=== PATIENT | female | born 1970 | race Caucasian/White ===

== ENCOUNTER → 2019-12-01 | Outpatient (CLI) | payer OTHER ==
--- NOTE | 2019-12-01 11:42 | RAD ---
Examination: ABDOMEN COMPLETE History: Reason: Epigastric ABD pain; Crohns Disease / Spl. Instructions: / History: Comparison/Correlation: None Findings: Complete upper abdominal ultrasound exam was performed. Exam is somewhat limited due to patient body habitus. Slight fatty infiltration of the liver noted. Portal venous flow is normal. Common bile duct is unremarkable. No biliary dilatation. Gallbladder is normal with no findings of cholelithiasis. No upper abdominal ascites or pericholecystic fluid. Right kidney measures 12 cm longitudinal. Left kidney measures 11.6 cm longitudinal. No hydronephrosis. Renal contours are unremarkable although lobulated. Proximal pancreas is unremarkable. Spleen is normal in appearance. Visualized abdominal aorta and inferior vena cava are not well visualized. Visualized portions are unremarkable. Impression: Mild fatty infiltration of the liver. Unremarkable, limited exam. Electronically signed by: Melo Li MD (12/01/2019 11:39 AM) [id number]
== END ==
LOC: US 08:13
PROVIDERS: ATTEND Emergency Medicine
DX: K76.0 Fatty (change of) liver, not elsewhere classified (principal); K50.90 Crohn's disease, unspecified, without complications
CPT/HCPCS: 76700

== ENCOUNTER → 2019-12-16 | Outpatient (CLI) | payer OTHER ==
[~2019-12-16] MED LIST: ALBU2.5V8 IH; AMLO10TA8 PO; ASPI-630 PO; ATOR20TA PO; BIMA2.5D EACHEYE; CAND32TA19 PO; CARI350T14 PO; DICY20TA3 PO; ESTR2TAB PO; FEXO180T81 PO; FLUT9.9S NS; GABA-586 PO; GARL100T2 PO; HYDR12.58 PO; LEVO50TA PO; LISI10TA2 PO; MELO7.5T29 PO; MESA1.2T PO; METF-550 PO; OMEP40CA45 PO; OXYB10TA26 PO; SIMV40TA18 PO
== END ==
LOC: LAB 07:50
PROVIDERS: ATTEND Registered Nurse
DX: Z01.818 Encounter for other preprocedural examination (principal); Z11.59 Encounter for screening for other viral diseases; K50.90 Crohn's disease, unspecified, without complications
CPT/HCPCS: C9803; U0003; 36415

== ENCOUNTER → 2019-12-20 | Day surgery (SDC) | payer OTHER ==
[~2019-12-20] MED LIST changes: +IPRATRPIUM/ALBUTEROL 0.5/2.5MG 3 ML NEBU. NEB PRN; +IV RINGERS SOLUTION,LACTATED 1,000 ML IV SCH; +MIDAZOLAM HCL PF 2 MG/2 ML VIAL. IV ONE; +ONDANSETRON PF 4 MG/2 ML VIAL. IV PRN; +PROPOFOL 10,000 MCG/ML (20ML) VIAL IV ONE
[2019-12-20 11:57] VITALS: BP 107/67
== END ==
LOC: SURG 09:31 → EDUNIT# 11:00
PROVIDERS: ATTEND Emergency Medicine
DX: K29.50 Unspecified chronic gastritis without bleeding (principal); I10 Essential (primary) hypertension; E11.9 Type 2 diabetes mellitus without complications; E03.9 Hypothyroidism, unspecified; Z90.710 Acquired absence of both cervix and uterus; Z90.49 Acquired absence of other specified parts of digestive tract; Z88.6 Allergy status to analgesic agent; Z79.84 Long term (current) use of oral hypoglycemic drugs
CPT/HCPCS: 43239; J2704; J7120; 88305; 88342

== ENCOUNTER → 2020-01-02 | Outpatient (CLI) | payer OTHER ==
[2019-12-20 11:57] VITALS: BP 107/67
[~2020-01-02] MED LIST changes: -IPRATRPIUM/ALBUTEROL 0.5/2.5MG 3 ML NEBU. NEB PRN; -IV RINGERS SOLUTION,LACTATED 1,000 ML IV SCH; -MIDAZOLAM HCL PF 2 MG/2 ML VIAL. IV ONE; -ONDANSETRON PF 4 MG/2 ML VIAL. IV PRN; -PROPOFOL 10,000 MCG/ML (20ML) VIAL IV ONE
--- NOTE | 2020-01-02 14:18 | RAD ---
Gastric Emptying Study Indication: Gastritis, epigastric pain for 6 months Comparison: None Procedure: Serial static images are obtained over the stomach following oral administration of 2 mCi of 99 M technetium sulfur colloid in a solid meal, and percentages of geometric mean retained uptake were calculated at intervals post ingestion. Findings: The stomach empties normally into the small bowel without evidence of reflux in the area the esophagus. The percentage of retained radiotracer material is as follows: 1 hour: 54% (normal range is 34.8 to 91%). 2 hour: 20% (normal range is 2.6 to 60%). 3 hour: 12% (normal range is 0.5 to 28%). 4 hour: 1% (normal range is 0 to 10%). The calculated gastric emptying T1/2 is 77 minutes. Normal reference is 60 minutes +/- 30. Impression: Normal gastric emptying study. Electronically signed by: Juan A Anderson MD (01/02/2020 2:15 PM) [id number]
== END | disposition home or self-care (01) ==
LOC: NM 08:21
PROVIDERS: ATTEND Emergency Medicine
DX: K29.60 Other gastritis without bleeding (principal); R10.13 Epigastric pain
CPT/HCPCS: 78264; A9541

== ENCOUNTER → 2020-09-20 | Outpatient (CLI) | payer OTHER ==
[2019-12-20 11:57] VITALS: BP 107/67
[~2020-09-20] MED LIST changes: +AMLO-187 PO; -AMLO10TA8 PO; +LISI10TA16 PO; -LISI10TA2 PO; -METF-550 PO; +METF-638 PO
--- NOTE | 2020-09-20 14:39 | RAD ---
EXAM: Chest, 2 views. HISTORY: Humara medication use. COMPARISON: None. FINDINGS: 2 views of the chest are obtained. There is no infiltrate, pleural effusion or pneumothorax . The heart is normal in size. IMPRESSION: No acute pulmonary finding. Electronically signed by: Lorraine Mott MD (09/20/2020 2:37 PM) [id number]
[2020-09-20 14:40] LABS: ALBUMIN 3.5 g/dL (3.4-5.0); ALBUMIN/GLOBULIN RATIO 0.8 (1.0-1.7); CALCIUM 9.4 mg/dL (8.5-10.1); CREATININE 1.1 mg/dL (0.6-1.0); POTASSIUM 4.1 mmol/L (3.5-5.1); TOTAL BILIRUBIN 0.2 mg/dL (0.2-1.0); TOTAL PROTEIN 8.1 g/dL (6.4-8.2)
[2020-09-20 14:57] LABS: BASO % 1 % (0-3); EOS # 0.1 x10^3/uL (0.0-0.7); EOS % 1 % (0-3); HEMATOCRIT 35.9 % (36.0-47.0); HEMOGLOBIN 11.6 g/dL (12.0-15.5); LYMPH # 1.6 x10^3/uL (1.0-4.8); LYMPH % 19 % (24-48); MEAN CORPUSCULAR HEMOGLOBIN 31 pg (25-35); MEAN CORPUSCULAR HGB CONC 32 g/dL (31-37); MEAN CORPUSCULAR VOLUME 95 fL (79-100); MONO # 0.7 x10^3/uL (0.0-1.1); MONO % 8 % (0-9); NEUT # 6.1 x10^3uL (1.8-7.7); NEUT % 72 % (31-73); PLATELET COUNT 388 x10^3/uL (140-400); RED BLOOD COUNT 3.78 x10^6/uL (3.50-5.40); RED CELL DISTRIBUTION WIDTH 14.1 % (11.5-14.5); WHITE BLOOD COUNT 8.5 x10^3/uL (4.0-11.0)
== END ==
LOC: LAB 13:08
PROVIDERS: ATTEND Emergency Medicine
DX: K50.90 Crohn's disease, unspecified, without complications (principal)
CPT/HCPCS: 71046; 80053; 85025; 86140; 86481; 86706; 86709; 87340

== ENCOUNTER → 2021-07-17 | Outpatient (CLI) | payer OTHER ==
[2019-12-20 11:57] VITALS: BP 107/67
[~2021-07-17] MED LIST changes: +DICY20TA PO; -DICY20TA3 PO; -ESTR2TAB PO; +ESTR2TAB3 PO; -OMEP40CA45 PO; +OMEP40CA7 PO
== END ==
LOC: SPEC 15:41
PROVIDERS: ATTEND Emergency Medicine
DX: K50.90 Crohn's disease, unspecified, without complications (principal); E55.9 Vitamin D deficiency, unspecified; R19.7 Diarrhea, unspecified
CPT/HCPCS: 87329; 87493; 87505